=== PATIENT | female | born 1995 ===

== ENCOUNTER 2016-07-19 14:14 | Emergency (ER) | payer OTHER ==
--- NOTE | 2016-07-19 14:23 | Emergency Department Record ---
History of Present Illness - General Chief Complaint: Laceration(s) Stated Complaint: LT HAND FINGER LACERATION Time Seen by Provider: 07/19/16 14:22 Source: Patient Mode of Arrival: Ambulatory Limitations: No limitations - History of Present Illness Initial Commments: The patient is here due to L 3rd finger pain. She cut the dorsal L 3rd finger over the PIP joint while cutting hair. She denies any numbness or tingling and her Td is not UTD. Onset/Timin -: Minutes(s) Location: Other Place: Work Context: Accidental Associated Symptoms: None Treatments Prior to Arrival: Bandage - [place] Coma Scale Eye Response: (4) Open spontaneously Motor Response: (6) Obeys commands Verbal Response: (5) Oriented [place] Total: 15 - Related Data Hx Tetanus Toxoid Vaccination: No Patient Tetanus UTD (within 5 yrs): No Previous Rx's Medication Instructions Recorded Cephalexin [Keflex] 500 mg PO QID #20 cap 07/19/16 Allergies Allergy/AdvReac Type Severity Reaction Status Date / Time No Known Allergies Allergy no Verified 07/19/16 14:22 allergies Travel Screening - Travel/Exposure Within Last 30 Days Have you traveled within the last 30 days?: No Review of Systems Constitutional: Denies: Chills, Fever Eyes: Denies: Eye discharge ENT: Denies: Congestion Respiratory: Denies: Cough Past Medical History - SOCIAL HISTORY Smoking Status: Never smoker Alcohol Use: None Drug Use: None - RESPIRATORY Hx Respiratory Disorders: No - CARDIOVASCULAR Hx Cardio Disorders: No - NEURO Hx Neuro Disorders: No - GI Hx GI Disorders: No - Hx Genitourinary Disorders: No - ENDOCRINE Hx Endocrine Disorders: No - MUSCULOSKELETAL Hx Musculoskeletal Disorders: No - PSYCH Hx Psych Problems: No - HEMATOLOGY/ONCOLOGY Hx Hematology/Oncology Disorders: No Family Medical History Any Significant Family History?: No Physical Exam - General General Appearance: Alert, Oriented x3, Cooperative, No acute distress - Head Head exam: Atraumatic, Normocephalic, Normal inspection - Eye Eye exam: Normal appearance, PERRL - Extremities Extremities exam: Full ROM, Tenderness (At the lac site.), Other (The finger is NVI.). negative: Normal inspection (There is a 2 cm flap superficial laceration over the L 3rd finger PIP joint dorsally. ) Image of Hand: 1 - Superficial flap lac. Course Vital Signs 07/19/16 14:18 Temperature 98.3 F Pulse Rate 105 H Respiratory 18 Rate Blood Pressure 133/72 Pulse Ox 100 - Reevaluation(s) Reevaluation #1: Procedure note: The L 3rd finger was anesth. with 2.5 cc's using a digital block technique. The lac was cleaned withe betadine and lavaged with sterile saline. The lac was not down to the tendon or bone. The flap was sutured with 7 4.0 nylon sutures. 07/19/16 15:00 Disposition Disposition: Discharge Clinical Impression: Finger laceration Qualifiers: Encounter type: initial encounter Qualified Code(s): S61.219A - Laceration without foreign body of unspecified finger without damage to nail, initial encounter Disposition: Home, Self-Care Condition: (1) Good Instructions: Laceration (ED) Additional Instructions: Keep the tube gauze on for 2 days then remove. At that time you may get the finger wet but no soaking. Use Keflex as directed and Tylenol or Motrin for pain. Have the sutures removed in 14 days. Watch for signs of any infection. Prescriptions: Cephalexin [Keflex] 500 mg PO QID #20 cap Forms: Patient Portal Access Time of Disposition: 15:05
[2016-07-19] MEDS ORDERED: Diph,Pert(Acell),Tet Vac 0.5 ML SYR IM ONE (14:58)
== END 2016-07-19 15:20 | disposition home or self-care (01) ==
LOC: ER 14:14
DX: S61.213A Laceration without foreign body of left middle finger without damage to nail, initial encounter (principal); W45.8XXA Other foreign body or object entering through skin, initial encounter; W27.2XXA Contact with scissors, initial encounter; Y92.414 Local residential or business street as the place of occurrence of the external cause; Y99.0 Civilian activity done for income or pay
CPT/HCPCS: 12001; 90715; 96372; 99283